=== PATIENT | male | born 1970 | race Caucasian/White ===

== ENCOUNTER 2016-10-11 18:15 | Emergency (ER) | payer SELFPAY ==
--- NOTE | 2016-10-11 18:22 | PDOC ---
History of Present Illness - General History Source: Patient, Old Records Exam Limitations: No Limitations <Keerthi Rice - Last Filed: 10/11/16 18:52> - General History Source: Patient, Old Records Exam Limitations: No Limitations - History of Present Illness Initial Comments: 10/11/16 18:52 The patient is a 46 year old male, with no significant past medical history, who presents to the emergency department with a vertical linear laceration of the right eyebrow which occurred at approximately 6PM this evening. He states that he didnt have the lights on at home so he couldnt see where he was going and walked into a door. He denies any blurry vision, double vision, vision changes, headache or LOC. Last Tetanus was 07/30/2013. Allergies: None reported. Past Surgical History: None reported. Social History: Non smoker. Occasional alcohol consumption. Denies drug use. PCP: None. <Janet Richardson - Last Filed: 10/11/16 18:56> - General Chief Complaint: Laceration Stated Complaint: RIGHT EYEBROW LACERATION Time Seen by Provider: 10/11/16 18:20 Past History - Psycho/Social/Smoking Cessation Hx Anxiety: No Suicidal Ideation: No Smoking History: Never smoked Have you smoked in the past 12 months: No Hx Alcohol Use: Yes (OCCAS.) Substance Use Type: None <Malu Ricefany - Last Filed: 10/11/16 18:52> <Janet Richardson - Last Filed: 10/11/16 18:56> - Past Medical History Allergies/Adverse Reactions: Allergies Allergy/AdvReac Type Severity Reaction Status Date / Time No Known Allergies Allergy Verified 10/11/16 18:17 Home Medications: Ambulatory Orders NK [No Known Home Medication] 10/11/16 Review of Systems - Review of Systems Able to Perform ROS?: Yes Comments:: 10/11/16 18:52 GENERAL/CONSTITUTIONAL: No fever or chills. No weakness. HEAD, EYES, EARS, NOSE AND THROAT: No change in vision. No ear pain or discharge. No sore throat. CARDIOVASCULAR: No chest pain or shortness of breath. RESPIRATORY: No cough, wheezing, or hemoptysis. GASTROINTESTINAL: No nausea, vomiting, diarrhea or constipation. GENITOURINARY: No dysuria, frequency, or change in urination. MUSCULOSKELETAL: No joint or muscle swelling or pain. No neck or back pain. SKIN: +Laceration of the right eyebrow. No rash. NEUROLOGIC: No headache, vertigo, loss of consciousness, or change in strength/ sensation. ENDOCRINE: No increased thirst. No abnormal weight change. HEMATOLOGIC/LYMPHATIC: No anemia, easy bleeding, or history of blood clots. ALLERGIC/IMMUNOLOGIC: No hives or skin allergy. <Janet Richardson - Last Filed: 10/11/16 18:56> *Physical Exam - Vital Signs Last Vital Signs Temp Pulse Resp BP Pulse Ox 98.0 F 102 H 16 153/103 100 10/11/16 18:16 10/11/16 18:16 10/11/16 18:16 10/11/16 18:16 10/11/16 18:16 - Physical Exam Comments: 10/11/16 18:54 GENERAL: Awake, alert, and fully oriented, in no acute distress. HEAD: No signs of trauma. EYES: PERRLA, EOMI, sclera anicteric, conjunctiva clear. ENT: Auricles normal inspection, hearing grossly normal, nares patent, oropharynx clear without exudates. Moist mucosa. NECK: No cervical spine tenderness. Normal ROM, supple, no lymphadenopathy, JVD , or masses. LUNGS: Breath sounds equal, clear to auscultation bilaterally. No wheezes, and no crackles. HEART: Regular rate and rhythm, normal S1 and S2, no murmurs, rubs or gallops. ABDOMEN: Soft, nontender, normoactive bowel sounds. No guarding, no rebound. No masses. EXTREMITIES: Normal range of motion, no edema. No clubbing or cyanosis. No cords, erythema, or tenderness. NEUROLOGICAL: Cranial nerves II through XII grossly intact. Normal speech, normal gait. SKIN: There is a 1.5 cm vertical linear laceration of the right eyebrow that appears clean with no active bleeding. No foreign bodies present. It does not extend into the muscular layer. Warm, dry, normal turgor, no rashes or lesions noted. <Janet Richardson - Last Filed: 10/11/16 18:56> Procedures - Laceration/Wound Repair Right Face Wound Length: to 2.5 cm (1.5 cm) Wound Explored: clean, no foreign body present Wound's Depth, Shape: superficial, linear Irrigated w/ Saline: No Betadine Prep: Yes Anesthesia: 1% Lidocaine Amount of Anesthetic (ccs): 2 Wound Repaired With: Sutures Suture Size/Type: 6:0, nylon Number of Sutures: 4 Sterile Dressing Applied: Yes <Janet Richardson - Last Filed: 10/11/16 18:56> Medical Decision Making - Medical Decision Making 10/11/16 18:49 46-year-old male with no significant past medical history who sustained a superficial laceration to his right eyebrow after walking into a door. Plan: 1. Tetanus status is el-gl-asrikywl tetanus was in 2012 2. Laceration was repaired (see procedure note) 3. Wound care was discussed with patient 4. Return to the emergency department if the wound appears red, swollen, purulent drainage, fever, or any signs of infection <Keerthi Rice - Last Filed: 10/11/16 18:52> *DC/Admit/Observation/Transfer - Discharge Dispostion Admit: No - Attestations Physician Attestion: 10/11/16 18:50 I, Dr. Keerthi Rice, attest that the scribes documentation that appears above has been prepared under my direction and personally reviewed by me in its entirety. I confirmed that the note above accurately reflects all work, treatment, procedures, and medical decision-making performed by me. <Keerthi Rice - Last Filed: 10/11/16 18:52> - Attestations Scribe Attestion: 10/11/16 18:38 Documentation prepared by Janet Richardson, acting as medical appliance maker for Keerthi Rice MD. <Janet Richardson - Last Filed: 10/11/16 18:56> Diagnosis at time of Disposition: Laceration of eyebrow, right - Discharge Dispostion Disposition: HOME Condition at time of disposition: Stable - Patient Instructions Printed Discharge Instructions: DI for Laceration Repair Additional Instructions: You have sustained a laceration to your right eyebrow that was sutured today. Please keep the wound clean and dry. If the wound gets wet you may patted dry and reapply bacitracin ointment. Please return to the emergency department or your primary care physician in 5-7 days for suture removal. Return to the emergency department sooner if the wound appears red, swollen, very Lent drainage, or any other signs of infection.
[2016-10-11] MEDS ORDERED: LIDO 2%/EPI 1:200000 PRESRVFRE (20 ML SDVIAL) ONE (18:27)
[2016-10-11 18:34] VITALS: BP 153/103; PULSE 102; TEMP 98; BMI 30.7
== END 2016-10-11 19:00 | disposition home or self-care (01) ==
LOC: FER 18:15
PROC: 0HQ1XZZ Repair Face Skin, External Approach (ICD-10-PCS; principal; 2016-10-11)
DX: S01.111A Laceration without foreign body of right eyelid and periocular area, initial encounter (principal); W22.8XXA Striking against or struck by other objects, initial encounter; Y93.89 Activity, other specified; Y92.9 Unspecified place or not applicable
CPT/HCPCS: 99282-25

== ENCOUNTER 2017-04-07 22:08 | Emergency (ER) | payer SELFPAY ==
[2017-04-07 22:15] VITALS: BP 151/95; PULSE 100; TEMP 99; BMI 30.7
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
== END 2017-04-07 23:38 | disposition home or self-care (01) ==
LOC: FER 22:08
DX: S42.021A Displaced fracture of shaft of right clavicle, initial encounter for closed fracture (principal); S00.03XA Contusion of scalp, initial encounter; S80.211A Abrasion, right knee, initial encounter; V18.0XXA Pedal cycle driver injured in noncollision transport accident in nontraffic accident, initial encounter; Y93.55 Activity, bike riding; Y92.9 Unspecified place or not applicable
CPT/HCPCS: 73000-TC-RT; 73030-TC-RT; 99282-25

== ENCOUNTER 2017-04-27 14:38 | Day surgery (SDC) | payer SELFPAY ==
[2017-04-25 12:56] VITALS: BMI 30.9
[2017-04-27] MEDS ORDERED: MIDAZOLAM HCL 2 MG/2 ML SINGLE DOSE VIAL ONE (15:53)
[2017-04-27] MEDS ORDERED: PROPOFOL 20 ML ONE (16:02)
[2017-04-27] MEDS ORDERED: LIDOCAINE HCL 2% 100 MG/5 ML DISP.SYRIN ONE (16:02)
[2017-04-27] MEDS ORDERED: DEXAMETHASONE SOD PHOSPHATE 4 MG/1 ML VIAL ONE (16:23)
[2017-04-27] MEDS ORDERED: ONDANSETRON 4 MG/2 ML VIAL ONE (16:23)
[2017-04-27] MEDS ORDERED: KETOROLAC TROMETHAMINE 30 MG/1 ML VIAL ONE (16:23)
[2017-04-27] MEDS ORDERED: DESFLURANE GAS 240 ML BOTTLE IH ONE (16:24)
[2017-04-27] MEDS ORDERED: LIDOCAINE HCL/EPINEPHRINE/PF 20 ML VIAL ONE (16:29)
[2017-04-27] MEDS ORDERED: LIDOCAINE 1%/EPI 1:100000 (20 ML MULTI DOSE VIAL) ONE (16:30)
[2017-04-27] MEDS ORDERED: LIDOCAINE 1%/EPI 1:100000 (20 ML MULTI DOSE VIAL) INF ONE (16:47)
[2017-04-27] MEDS ORDERED: ACETAMINOPHEN INJECTION 100 ML IVPB ONE (19:08)
[2017-04-27] MEDS ORDERED: oxyCODONE HCL 5 MG TABLET PO PRN (19:16)
[2017-04-27] MEDS ORDERED: PROMETHAZINE HCL 25 MG/1 ML VIAL IVPUSH PRN (19:16)
[2017-04-27] MEDS ORDERED: ONDANSETRON 4 MG/2 ML VIAL IVPUSH PRN (19:16)
[2017-04-27] MEDS ORDERED: ACETAMINOPHEN 1000 MG/100 ML VIAL (NON FORMULARY) IVPB ONE (19:17)
[2017-04-27] MEDS ORDERED: LACTATED RINGERS SOLUTION 1,000 ML IV SCH (19:30)
[2017-04-27 19:33] VITALS: TEMP 98.1
[2017-04-27] MEDS ORDERED: PROMETHAZINE HCL 25 MG/1 ML VIAL ONE (19:39)
[2017-04-27 20:40] VITALS: BP 142/88; PULSE 85
--- NOTE | 2017-04-28 13:43 | OP ---
DATE OF ADMISSION: 04/27/2017 PREOPERATIVE DIAGNOSIS: Right clavicle fracture, displaced, comminuted. POSTOPERATIVE DIAGNOSIS: Right clavicle fracture, displaced, comminuted. OPERATIVE PROCEDURE: Open reduction, internal fixation of right clavicle fracture. SURGEON: Nay Barraza MD CHICKEN HATCHERY HELPER: CATHI Granado ANESTHESIA: General. COMPLICATIONS: None. ESTIMATED BLOOD LOSS: 250 mL. INDICATION FOR PROCEDURE: A 46-year-old male with the above finding, indicated for operative treatment. Risks, benefits, alternatives were discussed with the patient at length, and proper informed consent was obtained. DESCRIPTION OF PROCEDURE: After preoperative identification of the patient and correct operative site, patient was brought to the operating room and placed supine on the table. All bony prominences were well padded. General anesthesia was provided by the anesthesiologist adequate for procedure. Patient was placed into the semi-beach chair position with all points of contact well padded. In-line cervical positioning was maintained throughout the procedure. Right shoulder girdle was prepped and draped in the usual sterile fashion. Lidocaine with epinephrine was used for hemostasis and pain control. An incision was made over the clavicle starting in the fracture site and then extending proximally and distally as necessary. Incision was taken sharply through the skin with blunt and sharp dissection of subcutaneous tissues, taking care to protect sternoclavicular nerves. The periosteum was divided. Significant early callus formation was visualized. This was carefully resected. The fracture was able to be reduced. It was highly comminuted, and rather than strip comminuted fragments, they were manipulated as well as possible into satisfactory position and then left attached to the soft tissue fragments and sutured around the main fracture fragments. This would allow them to act as autograft bone grafting rather than strip them and create avascular tissue. An Acumed superior clavicular plate was placed with 3 screws proximally and 3 screws distally, obtaining anatomic reduction of the fracture, and proper placement and sizing were confirmed clinically as well as radiographically. Care was taken to only drill through the cortex and not dive into the soft tissues. Shoulder was taken through a range of motion. There was no instability at the fracture repair site. Wound was irrigated and repaired in layers using 3-0 Vicryl, 4-0 Vicryl, 4-0 Monocryl. Dermabond and sterile dressings were applied. Patient was reversed from anesthesia and taken to the recovery room in stable condition, having tolerated the procedure well. Abhi Whitten, the neurosurgical physician assistant, was integral throughout the procedure. Procedure could not have been performed without a skilled operative neurosurgical physician assistant. NAY BARRAZA M.D. [id number]
== END 2017-04-27 21:08 | disposition home or self-care (01) ==
LOC: FASU 14:38
PROVIDERS: ATTEND Orthopaedic Surgery Hand Surgery
PROC: 0PS904Z Reposition Right Clavicle with Internal Fixation Device, Open Approach (ICD-10-PCS; principal; 2017-04-27 16:00)
DX: S42.021A Displaced fracture of shaft of right clavicle, initial encounter for closed fracture (principal); X58.XXXA Exposure to other specified factors, initial encounter; Y93.9 Activity, unspecified; Y92.9 Unspecified place or not applicable
CPT/HCPCS: 73000-TC-RT; 76001-TC; 94760